=== PATIENT | male | born 1990 | race Caucasian/White ===

== ENCOUNTER 2016-08-14 10:07 | Emergency (ER) | payer OTHER ==
[~2016-08-14] VITALS: Ht 177.8 cm; Wt 72.6 kg
[~2016-08-14 10:07] MED LIST: ACHD5005 PO; AGM875T PO; ASP81TEC; HYDR-2997 PO; HYDR1TAB PO; IBUP-1773 PO; OXYC-12 PO; PRD10T PO; PRD20T PO; SULF1TAB35 PO; SULF1TAB38 PO
--- OUTSIDE RECORDS SUMMARY | 2016-08-14 10:13 | XMS REPORT | Continuity of Care Document ---
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 No 12/15/15 7:04am Organ Donor No 12/15/15 7:04am Resuscitation Status Full Code 12/15/15 7:04am Chief Complaint and Reason for Visit Chief Complaint Allergic Reaction Reason for Visit Insect bites Pruritic rash Problems Active Problems Medical Problem Onset Date Status Insect bites Unknown Acute Pruritic rash Unknown Acute Medications Current Home Medications Medication Dose Units Route Directions Days/Qty Instructions Start Date Prednisone 10 Mg 10 Mg Oral As Directed 18 Take 3 tablets daily for 3 days, then 2 tablets daily for 3 days, then 1 tablet daily for 3 days 12/15/15 Past Home Medications Medication Directions Ordered Status Aspirin 81 Mg Tabec, Daily 12/28/09 Discontinued Acetaminophen/Hydrocodone Bitart (Lorcet 5/325MG) 1 Tab Tablet, 1 Tab Oral Every 3 Hours as needed 03/20/10 Discontinued Trimethoprim/Sulfamethoxazole 1 Ea Tablet, 1 Ea Oral Twice A Day 03/07/11 Discontinued Prednisone 20 Mg Tab, 40 Mg Oral Daily 03/07/11 Discontinued Trimethoprim/Sulfamethoxazole 1 Each Tablet, 1 Each Oral Twice A Day Discontinued Acetaminophen/Hydrocodone Bitart 1 Tab Tablet, 1 - 2 Each Oral Q 4 - 6 Hrs Prn 03/09/11 Discontinued Acetaminophen/Hydrocodone Bitart 1 Each Tablet, 1 - 2 Each Oral Q4hr Prn 20/06 Discontinued Oxycodone Hcl/Acetaminophen 1 Each Tablet, 1 - 2 Each Oral Every 4HRS as needed 06/25/12 Discontinued Amoxicillin/Clavulanate Potassium 1 Tab Tablet, 1 Tab Oral Twice A Day Discontinued Trimethoprim/Sulfamethoxazole 1 Ea Tablet, 1 Ea Oral Twice A Day 12/06/12 Discontinued Ibuprofen (Motrin) 600 Mg Tablet, 600 Mg Oral Every 6 Hours 12/31/13 Discontinued Social History Social History Problem Response Recorded Date/Time Alcohol Use Occasionally Uses 12/15/2015 7:04am Recreational Drug Use No 12/15/2015 7:04am Recent Foreign Travel No 12/15/2015 7:04am Recent Infectious Disease Exposure No 12/15/2015 7:04am Hospitalization with Isolation Denies 12/15/2015 7:04am Sexually Transmitted Disease No 12/15/2015 7:04am Smoking Status Current Everyday Smoker 12/15/2015 7:04am Query Response Start Date Stop Date Smoking Status Current Everyday Smoker Hospital Discharge Instructions No hospital discharge instructions. Plan of Care Discharge Date 12/15/15 7:22am Disposition 01 HOME, SELF-CARE Condition at Discharge Stable Instructions/Education Provided Insect Bite or Sting (ED) Acute Rash (ED) Prescriptions See Medication Section Referrals NO,LOCAL PHYSICIAN - Primary Care Physician Additional Instructions/Education You may continue using efvu-hhi-hqcxjww topical anti-itch medications. Try using a long-acting antihistamine such as Claritin, Zyrtec, Jessica, or their generic equivalents during the day. Use Benadryl up to 50 mg at night to help you sleep and to provide stronger itch relief. Use the steroids as prescribed. Steroids may cause jitteriness, anxiousness, or sleep disturbance. Therefore take your steroids early in the day. Take prednisone with food or milk to avoid stomach upset. Return to care if symptoms worsen. All discharge instructions reviewed with patient and/or family. Voiced understanding. Functional Status No functional status results. Allergies, Adverse Reactions, Alerts No known allergies. Immunizations Name Given Type Tetanus Booster (TDap) Less than 5yrs Historical Vital Signs Acute Vital Signs Vital Response Date/Time Temperature (Fahrenheit) 96.7 degrees F (97.6 - 99.5) 12/15/2015 7:04am Temperature (Calculated Celsius) 35.84445 degrees C (36.4 - 37.5) 12/15/2015 7:04am Temperature Source Temporal 12/15/2015 7:04am Pulse Rate (adult) 61 bpm (60 - 90) 12/15/2015 7:04am Respiratory Rate 20 bpm (12 - 24) 12/15/2015 7:04am O2 Sat by Pulse Oximetry 99 % (88 - 100) 12/15/2015 7:04am Blood Pressure 115/78 mm Hg 12/15/2015 7:04am Blood Pressure Mean 90 mm Hg 12/15/2015 7:04am Pain Pain Intensity 0 12/15/2015 7:04am Height (Feet) 5 feet 12/15/2015 7:04am Height (Inches) 10 inches 12/15/2015 7:04am Height (Calculated Centimeters) 177.306251 cm 12/15/2015 7:04am Weight (Pounds) 160 pounds 12/15/2015 7:04am Weight (Calculated Kilograms) 72.816674 kilograms 12/15/2015 7:04am Height 5 ft 10 in Weight 160 lb Body Mass Index 23.0 kg/m^2 Results No known relevant diagnostic tests, laboratory data and/or discharge summary. Procedures No known history of procedures. Encounters Encounter Location Arrival/Admit Date Discharge/Depart Date Attending Provider Departed Emergency Room [facility] 12/15/15 6:59am 12/14 7:22am NICOLE HARRIS MD Recent Diagnosis
[2016-08-14] MEDS ORDERED: NF-OLOP5ML OP (11:25)
--- NOTE | 2016-08-14 11:25 | ED EENT ---
History of Present Illness General Chief Complaint: Eye Problems Stated Complaint: LEFT EYE SWOLLEN Nursing Triage Note: c/o swelling to left eye. Onset yesterday. Denies difficulty with vision or drainage. Mild discomfort with "squinting". Source: patient Exam Limitations: no limitations History of Present Illness Time seen by provider: 11:07 Initial Comments This young man presents to emergency room with painful, itchy, swollen left eye this morning. He has no known environmental allergies. He describes the sensation as more itchy than painful. Vision is unaffected. A couple months ago he was prescribed tobramycin drops for a similar problem and had improvement. He denies any other symptoms such as sneezing, cough, fever, etc. He has no primary care provider. Allergies and Home Medications Allergies Coded Allergies: No Known Drug Allergies (Unverified , 04/08/16) Home Medications Olopatadine 5 Ml Drops #1 1 DROP OP BID PRN PRN ITCHING In affected eye. May substitute Pataday once daily if more cost effective. Prescribed by: NICOLE SKELTON on 08/14/16 1125 Review of Systems Constitutional: no symptoms reported Eyes: See HPI Ears: No Symptoms Reported Nose: no symptoms reported Mouth: no symptoms reported Throat: no symptoms reported Respiratory: no symptoms reported Skin: see HPI Neurological: No Symptoms Reported Past Ocguhql-Dlksdq-Syeqyg Hx Patient Social History Alcohol Use: Occasionally Uses Recreational Drug Use: Yes Smoking Status: Current Everyday Smoker Type Used: Cigarettes Recent Foreign Travel: No Contact w/Someone Who Travel: No Recent Infectious Disease Expo: No Recent Hopitalizations: Yes Immunizations Up To Date Tetanus Booster (TDap): Less than 5yrs Seasonal Allergies Seasonal Allergies: No Surgeries HX Surgeries: Yes (10/20/09 hernia repair, 03/2009 iliac artery repair with stent ) Surgeries: Vascular Surgery (lower extremity traumas with vascular stent placement) Respiratory Hx Respiratory Disorders: No Cardiovascular Hx Cardiac Disorders: Yes Cardiac Disorders: Peripheral Vascular Neurological Hx Neurological Disorders: No Reproductive System Hx Reproductive Disorders: No Sexually Transmitted Disease: No Genitourinary Hx Genitourinary Disorders: No Gastrointestinal Hx Gastrointestinal Disorders: No Musculoskeletal Hx Musculoskeletal Disorders: Yes (plate right hand) Endocrine Hx Endocrine Disorders: No HEENT HX ENT Disorders: No Cancer Hx Cancer: No Psychosocial Hx Psychiatric Problems: No Integumentary HX Skin/Integumentary Disorder: No Blood Transfusions Hx Blood Disorders: No Adverse Reaction to a Blood Tr: No Family Medical History Significant Family History: No Pertinent Family Hx Physical Exam Vital Signs Vital Sign - Last 12Hours 08/14/16 08/14/16 11:09 11:34 Temp 97.4 Pulse 63 Resp 16 B/P 107/75 Pulse Ox 99 O2 Delivery Room Air General Appearance: WD/WN no apparent distress Eyes: left eye other (conjunctival edema and slight swelling around the lids), bilateral eye EOMI, bilateral eye PERRL Ears: bilateral ear TM normal, bilateral ear auricle normal, bilateral ear canal normal Nose: normal inspection Mouth/Throat: normal mouth inspection pharynx normal Cardiovascular: regular rate, rhythm no edema Respiratory: lungs clear normal breath sounds 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 Departure Impression Impression: Primary Impression: Allergic conjunctivitis, acute Qualified Code: H10.12 - Acute atopic conjunctivitis, left eye Disposition: 01 HOME, SELF-CARE Condition: Stable Departure-Patient Inst. Decision time for Depature: 11:15 Referrals: NO,LOCAL PHYSICIAN (PCP/Family) Primary Care Physician Patient Instructions: Conjunctivitis (Pinkeye), How to Use Eye Drops Add. Discharge Instructions: Use an ltss-sen-fgsqjzl antihistamine such as loratadine in conjunction with an antihistamine eyedrop. You have been provided with a prescription for prescription strength eyedrops. If this is cost prohibitive, you may try an rdck-zbh-pujhqag antihistamine eyedrop. Follow-up with a primary care provider in the outpatient setting if symptoms are not improving. Return to the ER if you have significant worsening requiring prompt attention. All discharge instructions reviewed with patient and/or family. Voiced understanding. Scripts Olopatadine (Patanol)5 Ml Drops1 Drop OP BID PRN ITCHING #1 DROPS In affected eye. May substitute Pataday once daily if more cost effective. Prov:NICOLE HARRIS MD 08/14/16 NICOLE HARRIS MD Aug 14, 2016 11:25
[2016-08-14 11:34] VITALS: BP 107/75
== END 2016-08-14 11:34 | disposition home or self-care (01) ==
LOC: EDUNIT# 10:07 → ER 10:09
DX: H10.12 Acute atopic conjunctivitis, left eye (principal); F17.210 Nicotine dependence, cigarettes, uncomplicated
CPT/HCPCS: 99282

== ENCOUNTER 2017-06-03 18:29 | Emergency (ER) | payer SELFPAY ==
[~2017-06-03] VITALS: Ht 180.3 cm; Wt 79.4 kg
[~2017-06-03 18:29] MED LIST changes: +NF-OLOP5ML OP
[2017-06-03] MEDS ORDERED: LIDOCAINE 2% 20 ML (XYLOCAINE) VIAL INJ ONE (18:45)
--- NOTE | 2017-06-03 18:59 | ED Head Injury ---
General Chief Complaint: Laceration Stated Complaint: TOP OF HEAD LAC Nursing Triage Note: AMB TO ROOM REPORTS LG GLASS OBJECT FELL ON TOP OF HIS HEAD NO LOC ,BUT REPORTS BEING DIZZY Source: patient, family Exam Limitations: no limitations History of Present Illness Time seen by provider: 18:57 Initial Comments To ER per private vehicle with reports of a laceration to the top of the scalp. Patient states that he was getting something out of a cabinet when a ceramic pot fell on top of his head. No loss of consciousness but he does have dizziness. Also the laceration. Occurred: just prior to arrival Severity: moderate Allergies and Home Medications Allergies Coded Allergies: No Known Drug Allergies (Unverified , 04/08/16) Home Medications No Active Prescriptions or Reported Meds Constitutional: see HPI Eyes: No Symptoms Reported Ears, Nose, Mouth, Throat: no symptoms reported Respiratory: no symptoms reported Cardiovascular: no symptoms reported Genitourinary: no symptoms reported Musculoskeletal: no symptoms reported Skin: no symptoms reported Psychiatric/Neurological: No Symptoms Reported Past Pqhgqgl-Rwndts-Pbcjgv Hx Patient Social History Alcohol Use: Occasionally Uses Recreational Drug Use: Yes Smoking Status: Current Everyday Smoker Type Used: Cigarettes Recent Foreign Travel: No Contact w/Someone Who Travel: No Recent Infectious Disease Expo: No Recent Hopitalizations: Yes Immunizations Up To Date Tetanus Booster (TDap): Less than 5yrs Seasonal Allergies Seasonal Allergies: No Surgeries History of Surgeries: Yes (10/20/09 hernia repair, 03/2009 iliac artery repair with stent) Surgeries: Vascular Surgery Respiratory History of Respiratory Disorde: No Cardiovascular History of Cardiac Disorders: Yes Cardiac Disorders: Peripheral Vascular Neurological History of Neurological Disord: No Reproductive System Hx Reproductive Disorders: No Sexually Transmitted Disease: No Gastrointestinal History of Gastrointestinal Di: No Musculoskeletal History of Musculoskeletal Dis: Yes (plate right hand) Endocrine History of Endocrine Disorders: No Cancer History of Cancer: No Psychosocial History of Psychiatric Problem: No Integumentary History of Skin or Integumenta: No Blood Transfusions History of Blood Disorders: No Adverse Reaction to a Blood Tr: No Family Medical History Significant Family History: No Pertinent Family Hx Physical Exam Vital Signs Vital Sign - Last 12Hours 06/03/17 18:31 Temp 97.9 Pulse 111 Resp 18 B/P (MAP) 160/89 Pulse Ox 95 Capillary Refill : Less Than 3 Seconds General Appearance: WD/WN, no apparent distress HEENT: PERRL/EOMI, normal ENT inspection, other (2 cm laceration to the scalp.) Neck: non-tender, full range of motion Respiratory: no respiratory distress, no accessory muscle use Gastrointestinal: normal bowel sounds, non tender Extremities: normal range of motion, non-tender Psychiatric: alert, oriented x 3 Crainal Nerves: normal hearing, normal speech Skin: normal color, warm/dry Emil Coma Score Best Eye Response: (4) Open Spontaneously Best Verbal Response: (5) Oriented Best Motor Response: (6) Obeys Commands Emil Total: 15 Laceration Repair : Wound Location: Scalp Wound Length (cm): 2 Wound's Depth, Shape: linear Wound Explored: clean Anesthesia: 1% Lidocaine Staple Repair: Stapler 35W Progress Anesthetized with 1 mL of 2 percent lidocaine without epinephrine. Scrubbed with chlorhexidine/saline solution and hydrogen peroxide to remove the dried blood. Closed with 3 hortensia. Progress/Results/Core Measures Results/Orders My Orders Orders - MAGALIS GILBERT APRN Lidocaine 2% Injection 20 Ml (Xylocaine (06/03/17 18:45) Ct Head Wo (06/03/17 18:34) Medications Given in ED Current Medications Medications Dose Ordered Sig/Elizabeth Route Start Time Stop Time Status Last Admin Dose Admin Lidocaine HCl 3 ml ONCE ONCE INJ 06/03/17 18:45 06/03/17 18:46 DC 06/03/17 18:47 1 ML Vital Signs/I&O Vital Sign - Last 12Hours 06/03/17 18:31 Temp 97.9 Pulse 111 Resp 18 B/P (MAP) 160/89 Pulse Ox 95 Blood Pressure Mean: 112 Departure Communication (Admissions) Progress Notes NAME: NEMESIO KRISHNAMURTHY [facility] REC#: [id number] PT STATUS: REG ER : 1990 PHYSICIAN: MAGALIS GILBERT APRN ADMIT DATE: 06/03/17/ER Draft Date of Exam:06/03/17 CT HEAD WO PROCEDURE: CT head without contrast. TECHNIQUE: Multiple contiguous axial images were obtained through the brain without the use of intravenous contrast. INDICATION: Head trauma. FINDINGS: The ventricles and sulci are within normal limits. There is no hydrocephalus or cerebral edema. There is no midline shift or mass effect. There is no intracranial mass, hemorrhage, or extra-axial fluid collection. The visualized paranasal sinuses and mastoid air cells are clear. There are no regional areas of decreased attenuation appreciated to suggest an acute CVA. IMPRESSION: No acute intracranial abnormality. Dictated on workstation # [id number] Dict: 06/03/171853 Trans: 06/03/171856 [id number] Interpreted by: UMANG HAGAN MD Electronically signed by: Impression Impression: Primary Impression: Scalp laceration Disposition: 01 HOME, SELF-CARE Condition: Stable Departure-Patient Inst. Decision time for Depature: 18:59 Referrals: NO,LOCAL PHYSICIAN (PCP/Family) Primary Care Physician Patient Instructions: Laceration Repair With Hortensia (DC) Add. Discharge Instructions: 1. Return to the emergency room in 5-7 days to have the hortensia removed 2. Return to ER for any concerns 3. Tylenol and Motrin for headache All discharge instructions reviewed with patient and/or family. Voiced understanding. Scripts No Active Prescriptions or Reported Avelinos MAGALIS GILBERT APRN Jun 03, 2017 18:59
[2017-06-03 19:07] VITALS: BP 141/78
== END 2017-06-03 19:07 | disposition home or self-care (01) ==
LOC: EDUNIT# 18:29 → ER 18:30
DX: S01.01XA Laceration without foreign body of scalp, initial encounter (principal); F17.210 Nicotine dependence, cigarettes, uncomplicated; W20.8XXA Other cause of strike by thrown, projected or falling object, initial encounter
CPT/HCPCS: 70450

== ENCOUNTER 2017-06-10 17:51 | Emergency (ER) | payer SELFPAY ==
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
== END 2017-06-10 18:51 | disposition left against medical advice (07) ==
LOC: EDUNIT# 17:51 → ER 17:52
DX: Z48.02 Encounter for removal of sutures (principal)

== ENCOUNTER 2017-06-11 11:50 | Emergency (ER) | payer SELFPAY ==
[~2017-06-11] VITALS: Ht 177.8 cm; Wt 72.6 kg
--- OUTSIDE RECORDS SUMMARY | 2017-06-11 11:57 | XMS REPORT | Continuity of Care Document ---
Author Author [facility] of [facility] of [facility] Address Unknown Phone Unavailable Allergies Active Description Code Type Severity Reaction Onset Reported/Identified Relationship to Patient Clinical Status Yes No Known Drug Allergies [id number] Drug Allergy Mild N/A 04/08/2016 Medications Problems [...] CAUSE STATUS 07/21/2011 Ot E007.0 ACTIVITIES INVOLVING VINCENTIAN TACKLE BASIL 07/21/2011 Ot E849.4 ACCID IN [...] Ot Y99.8 OTHER EXTERNAL CAUSE STATUS 06/12/2016 ARTUOR MALIK MD Ot F17.210 NICOTINE DEPENDENCE, CIGARETTES, [...] OTH CAUSE OF STRIKE BY THROWN, PROJECTED 06/09/2017 MAGALIS GILBERT APRN Ot F17.210 NICOTINE DEPENDENCE, CIGARETTES, UNCOMPL 06/09/2017 MAGALIS GILBERT APRN Ot S01.01XA LACERATION WITHOUT FOREIGN BODY OF SCALP 06/09/2017 MAGALIS GILBERT APRN Ot W20.8XXA OTH CAUSE OF STRIKE BY THROWN, PROJECTED Procedures Code Description [place] [address] EXCISION BENIGN LESION 0.6-1 cm (spcify location in Medcin description) 04/27/2014 Results Encounters ACCT No. Visit Date/Time Discharge Status Pt. Type Provider Facility Loc./Unit Complaint [id number] 05/04/2014 15:35:00 05/04/2014 23: 59:59 CLS Outpatient STEVE HERR APRN [id number] 04/27/2014 14:12:00 04/27/2014 23: 59:59 CLS Outpatient STEVE HERR APRN [id number] 03/31/2014 16:46:00 03/31/2014 23: 59:59 CLS Outpatient STEVE HERR APRN [id number] 06/10/2017 17:52:00 2016 18:51:00 DIS Emergency NICOLE HARRIS MD [facility] ER STAPLE REMOVAL [id number] 06/03/2017 18:30:00 2016 19:07:00 DIS Outpatient MAGALIS GILBERT APRN [facility] ER TOP OF HEAD LAC [id number] 08/14/2016 10:09:00 2016 11:34:00 DIS Emergency NICOLE HARRIS MD [facility] ER LEFT EYE SWOLLEN [id number] 06/12/2016 10:06:00 2015 10:58:00 DIS Emergency HELENA FAIRCHILD, ARTURO [place] [facility] ER EYES RED/SWOLLEN POSS FB [id number] 04/08/2016 16:46:00 2015 17:55:00 DIS Emergency GENO FAIRCHILD, ROC New Via [facility] ER L HAND LAC [id number] 12/15/2015 06:59:00 2015 07:22:00 DIS Emergency KIMBERLY FAIRCHILD, NICOLE Rucker [facility] ER BITES ALL OVER BODY [id number] 04/01/2014 11:06:00 2013 12:39:00 DIS Emergency ROC LORA MD [facility] ER [id number] 12/31/2013 10:39:00 2013 12:12:00 DIS Emergency [id number] 12/06/2012 03:20:00 2012 04:52:00 DIS Emergency KIMBERLY FAIRCHILD, NICOLE Rucker [facility] ER [id number] 07/21/2011 18:20:00 Document Registration [id number] 03/09/2011 16:36:00 Document Registration [id number] 03/07/2011 19:26:00 Document Registration [id number] 10/20/2009 05:45:00 Document Registration
[2017-06-11 12:22] VITALS: BP 140/75
== END 2017-06-11 12:22 | disposition home or self-care (01) ==
LOC: EDUNIT# 11:50 → ER 11:52
DX: S01.81XD Laceration without foreign body of other part of head, subsequent encounter (principal); X58.XXXD Exposure to other specified factors, subsequent encounter

== ENCOUNTER 2017-06-22 14:33 | Emergency (ER) | payer SELFPAY ==
[~2017-06-22] VITALS: Ht 170.2 cm; Wt 70.3 kg
[2017-06-22] MEDS ORDERED: LORazepam INJ 2 MG/ML (ATIVAN) VIAL ONE (14:51)
[2017-06-22] MEDS ORDERED: NS IV 1000 ML 1,000 ML ONE (14:51)
--- NOTE | 2017-06-22 14:57 | ED Psychosocial ---
General Stated Complaint: METH ABUSE, POSS SEIZURE, CANT MOVE TOES Source: patient, family History of Present Illness Time seen by provider: 14:52 Initial Comments This 27-year-old white male presents with an adverse reaction following smoking meth amphetamines this morning. Patient believes that he may have had a seizure. The patient upon presentation returned to department was febrile and markedly agitated. The patient was able off for simple an appropriate history. He did not appear to be hallucinating. 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 Allergies and Home Medications Allergies Coded Allergies: No Known Drug Allergies (Unverified , 04/08/16) Home Medications No Active Prescriptions or Reported Meds Constitutional: No chills, fever EENTM: No hearing loss, No vision loss Respiratory: No cough Cardiovascular: No chest pain, palpitations Gastrointestinal: No abdominal pain, No diarrhea, No vomiting Genitourinary: No decreased output, No dysuria, No frequency Musculoskeletal: No back pain, No muscle pain Skin: No change in color, No rash Psychiatric/Neurological: No Symptoms Reported Past Ptvgqbt-Qowygw-Lkteax Hx Patient Social History Type Used: Cigarettes Recent Foreign Travel: No Contact w/Someone Who Travel: No Recent Hopitalizations: Yes Immunizations Up To Date Tetanus Booster (TDap): Less than 5yrs Seasonal Allergies Seasonal Allergies: No Surgeries History of Surgeries: Yes (10/20/09 hernia repair, 03/2009 iliac artery repair with stent) Surgeries: Vascular Surgery Respiratory History of Respiratory Disorde: No Cardiovascular History of Cardiac Disorders: Yes Cardiac Disorders: Peripheral Vascular Neurological History of Neurological Disord: No Reproductive System Hx Reproductive Disorders: No Sexually Transmitted Disease: No Gastrointestinal History of Gastrointestinal Di: No Musculoskeletal History of Musculoskeletal Dis: Yes (plate right hand) Endocrine History of Endocrine Disorders: No Cancer History of Cancer: No Psychosocial History of Psychiatric Problem: No Integumentary History of Skin or Integumenta: No Blood Transfusions History of Blood Disorders: No Adverse Reaction to a Blood Tr: No Reviewed Nursing Assessment Reviewed/Agree w Nursing PMH: Yes Family Medical History Significant Family History: No Pertinent Family Hx Physical Exam Vital Signs Vital Sign - Last 12Hours 06/22/17 14:38 Temp 101.6 Pulse 132 Resp 18 B/P (MAP) 120/76 (91) Pulse Ox 99 Capillary Refill : General Appearance: WD/WN, moderate distress HEENT: normal ENT inspection Neck: non-tender, full range of motion, supple Respiratory: lungs clear Cardiovascular: tachycardia Gastrointestinal: normal bowel sounds, non tender, soft Extremities: normal range of motion, non-tender, normal inspection Neurologic/Psychiatric: no motor/sensory deficits, other (patient's extremely agitated. He does not however appear to be having visual or auditory hallucinations.) Appearance/Memory: disheveled Behavior/Eye Contact: cooperative Thoughts/Hallucinations: normal thought pattern, no apparent hallucination Skin: normal color, warm/dry Progress/Results/Core Measures Results/Orders Lab Results Laboratory Tests Test 06/22/17 14:50 Range/Units White Blood Count 7.9 4.3-11.0 10^3/uL Red Blood Count 5.18 4.35-5.85 10^6/uL Hemoglobin 15.4 13.3-17.7 G/DL Hematocrit 43 40-54 % Mean Corpuscular Volume 82 80-99 FL Mean Corpuscular Hemoglobin 30 25-34 PG Mean Corpuscular Hemoglobin Concent 36 32-36 G/DL Red Cell Distribution Width 11.7 10.0-14.5 % Platelet Count 247 130-400 10^3/uL Mean Platelet Volume 9.9 7.4-10.4 FL Neutrophils (%) (Auto) 88 H 42-75 % Lymphocytes (%) (Auto) 4 L 12-44 % Monocytes (%) (Auto) 8 0-12 % Eosinophils (%) (Auto) 0 0-10 % Basophils (%) (Auto) 0 0-10 % Neutrophils # (Auto) 6.9 1.8-7.8 X 10^3 Lymphocytes # (Auto) 0.3 L 1.0-4.0 X 10^3 Monocytes # (Auto) 0.6 0.0-1.0 X 10^3 Eosinophils # (Auto) 0.0 0.0-0.3 10^3/uL Basophils # (Auto) 0.0 0.0-0.1 10^3/uL Neutrophils % (Manual) 87 % Lymphocytes % (Manual) 4 % Monocytes % (Manual) 5 % Band Neutrophils 4 % Toxic Granulation 3+ Dohle Bodies SLIGHT Blood Morphology Comment NORMAL Sodium Level 135 135-145 MMOL/L Potassium Level 3.6 3.6-5.0 MMOL/L Chloride Level 103 98-107 MMOL/L Carbon Dioxide Level 18 L 21-32 MMOL/L Anion Gap 14 5-14 MMOL/L Blood Urea Nitrogen 13 7-18 MG/DL Creatinine 1.19 0.60-1.30 MG/DL Estimat Glomerular Filtration Rate > 60 BUN/Creatinine Ratio 11 Glucose Level 105 70-105 MG/DL Calcium Level 9.7 8.5-10.1 MG/DL Total Bilirubin 0.9 0.1-1.0 MG/DL Aspartate Amino Transf (AST/SGOT) 13 5-34 U/L Alanine Aminotransferase (ALT/SGPT) 17 0-55 U/L Alkaline Phosphatase 80 40-136 U/L Total Protein 7.4 6.4-8.2 GM/DL Albumin 4.5 3.2-4.5 GM/DL My Orders Orders - KATALINA CANAS MD Cbc With Automated Diff (06/22/17 14:49) Comprehensive Metabolic Panel (06/22/17 14:49) Ua Culture If Indicated (06/22/17 14:49) Drug Screen Stat (Urine) (06/22/17 14:49) Ns Iv 1000 Ml (Sodium Chloride 0.9%) (06/22/17 15:00) Lorazepam Injection (Ativan Injection) (06/22/17 15:00) Acetaminophen Tablet (Tylenol Tablet) (06/22/17 15:00) Ns Iv 1000 Ml (Sodium Chloride 0.9%) (06/22/17 14:51) Lorazepam Injection (Ativan Injection) (06/22/17 14:51) Manual Differential (06/22/17 14:50) Medications Given in ED Current Medications Medications Dose Ordered Sig/Elizabeth Route Start Time Stop Time Status Last Admin Dose Admin Acetaminophen 1,000 mg ONCE ONCE PO 06/22/17 15:00 06/22/17 15:01 DC 06/22/17 15:01 1,000 MG Lorazepam 2 mg ONCE ONCE IVP 06/22/17 15:00 06/22/17 15:01 DC 06/22/17 15:00 2 MG Vital Signs/I&O Vital Sign - Last 12Hours 06/22/17 14:38 Temp 101.6 Pulse 132 Resp 18 B/P (MAP) 120/76 (91) Pulse Ox 99 Progress Note : Time: 15:32 Progress Note The patient received 2 L of normal saline IV with 2 mg of Ativan IV. Patient was observed in the emergency department. Patient became much more relaxed. He was able offer a helpful history. 445 p.m. Patient was awake and alert. His family is gathered. They're willing to take the patient home and watch him tonight. Patient understands that his continued drug use is most likely to cause him to . Departure Impression Impression: Primary Impression: Drug abuse Disposition: 01 HOME, SELF-CARE Condition: Improved Departure-Patient Inst. Decision time for Depature: 16:46 Referrals: NO,LOCAL PHYSICIAN (PCP) Primary Care Physician Patient Instructions: ALCOHOL AND SUBSTANCE ABUSE Add. Discharge Instructions: Discontinue drug use. Come back for any problems or questions. Scripts No Active Prescriptions or Reported Meds KATALINA CANAS MD Jun 22, 2017 14:57
[2017-06-22] MEDS: NS IV 1000 ML 1,000 ML IV SCH ×2 (15:00→16:33)
[2017-06-22] MEDS ORDERED: LORazepam INJ 2 MG/ML (ATIVAN) VIAL IVP ONE (15:00)
[2017-06-22] MEDS ORDERED: ACETAMINOPHEN 500 MG TAB (TYLENOL) PO ONE (15:00)
[2017-06-22 15:03] LABS: BASOPHILS % (AUTO) 0 % (0-10); EOSINOPHILS % (AUTO) 0 % (0-10); LYMPHOCYTES # (AUTO) 0.3 X 10^3 (1.0-4.0); LYMPHOCYTES % (AUTO) 4 % (12-44); MEAN CORPUSCULAR HEMOGLOBIN 30 PG (25-34); MEAN CORPUSCULAR HGB CONC 36 G/DL (32-36); MEAN CORPUSCULAR VOLUME 82 FL (80-99); MEAN PLATELET VOLUME 9.9 FL (7.4-10.4); MONOCYTES # (AUTO) 0.6 X 10^3 (0.0-1.0); MONOCYTES % (AUTO) 8 % (0-12); NEUTROPHILS # (AUTO) 6.9 X 10^3 (1.8-7.8); NEUTROPHILS % (AUTO) 88 % (42-75); PLATELET COUNT 247 10^3/uL (130-400); RED BLOOD COUNT 5.18 10^6/uL (4.35-5.85); RED CELL DISTRIBUTION WIDTH 11.7 % (10.0-14.5); WHITE BLOOD COUNT 7.9 10^3/uL (4.3-11.0)
[2017-06-22 15:20] LABS: ALANINE AMINOTRANSFERASE 17 U/L (0-55); ALBUMIN 4.5 GM/DL (3.2-4.5); ANION GAP 14 MMOL/L (5-14); ASPARTATE AMINO TRANSFERASE 13 U/L (5-34); BILIRUBIN,TOTAL 0.9 MG/DL (0.1-1.0); BLOOD UREA NITROGEN 13 MG/DL (7-18); BUN/CREATININE RATIO 11; CALCIUM 9.7 MG/DL (8.5-10.1); CARBON DIOXIDE 18 MMOL/L (21-32); CHLORIDE 103 MMOL/L (98-107); CREATININE SERUM 1.19 MG/DL (0.60-1.30); GFR ESTIMATED > 60; GLUCOSE 105 MG/DL (70-105); POTASSIUM 3.6 MMOL/L (3.6-5.0); SODIUM 135 MMOL/L (135-145); TOTAL PROTEIN 7.4 GM/DL (6.4-8.2)
[2017-06-22 15:25] LABS: BAND NEUTROPHILS 4 %; LYMPHOCYTES % (MANUAL) 4 %; NEUTROPHILS % (MANUAL) 87 %
[2017-06-22 16:54] VITALS: BP 101/79
== END 2017-06-22 16:55 | disposition home or self-care (01) ==
LOC: EDUNIT# 14:33 → ER 14:34
DX: F15.10 Other stimulant abuse, uncomplicated (principal)
CPT/HCPCS: 36415; 80053; 85007; 85027

== ENCOUNTER 2017-06-23 12:09 | Emergency (ER) | payer SELFPAY ==
[~2017-06-23] VITALS: Ht 175.3 cm; Wt 68.0 kg
--- OUTSIDE RECORDS SUMMARY | 2017-06-23 12:14 | XMS REPORT | Continuity of Care Document ---
Author Author [facility] of [facility] of [facility] Address Unknown Phone Unavailable Allergies Active Description Code Type Severity Reaction Onset Reported/Identified Relationship to Patient Clinical Status Yes No Known Drug Allergies [id number] Drug Allergy Mild N/A 04/08/2016 Medications There is no data. Problems Date Dx Coded Attending Type Code [...] SPRAIN OF NECK 07/21/2011 Ot 920 CONTUSION FACE/ SCALP/NCK 07/21/2011 Ot 959.09 INJURY OF FACE AND NECK 07/21/2011 Ot E000.8 OTHER EXTERNAL CAUSE STATUS 07/21/2011 Ot E007.0 ACTIVITIES INVOLVING LAO TACKLE BASIL 07/21/2011 Ot E849.4 ACCID IN [...] BITE (NONVENOMOUS) OF LEFT BACK W 12/15/2015 BRUEGGEMANN MD, NICOLE T Ot S40.261A INSECT BITE (NONVENOMOUS) OF RIGHT [...] Ot Y92.[address] IN UNSP NON-INSTITUT (PRIVATE 04/08/2016 ROC LORA MD Ot Y99.8 OTHER [...] NICOTINE DEPENDENCE, CIGARETTES, UNCOMPL 06/03/2017 MAGALIS GILBERT BLEACH PACKER Ot S01.01XA LACERATION WITHOUT FOREIGN BODY OF SCALP 06/03/2017 MAGALIS GILBERT APRN Ot W20.8XXA OTH CAUSE OF STRIKE BY THROWN, PROJECTED 06/09/2017 MAGALIS GILBERT APRN Ot F17.210 NICOTINE DEPENDENCE, CIGARETTES, UNCOMPL 06/09/2017 MAGALIS GILBERT APRN Ot S01.01XA LACERATION WITHOUT FOREIGN BODY OF SCALP 06/09/2017 MAGALIS GILBERT APRN Ot W20.8XXA OTH CAUSE OF STRIKE BY THROWN, PROJECTED 06/11/2017 ARTURO MALIK MD Ot S01.81XD LACERATION W/O FOREIGN BODY OF OTH PART 06/11/2017 ARTURO MALIK MD Ot X58.XXXD EXPOSURE TO OTHER SPECIFIED FACTORS, SUB Procedures Code Description [place] [address] EXCISION BENIGN LESION 0.6- 1 cm (spcify location in Medcin description) 04/27/2014 Results There is no data. Encounters ACCT No. Visit Date/Time Discharge Status Pt. Type Provider Facility Loc./Unit Complaint [id number] 05/04/2014 15:35:00 05/04/2014 23:59:59 CLS Outpatient STEVE HERR APRN [id number] 04/27/2014 14:12:00 04/27/2014 23:59:59 CLS Outpatient STEVE HERR APRN [id number] 03/31/2014 16:46:00 03/31/2014 23:59:59 CLS Outpatient STEVE HERR APRN [id number] 06/11/2017 11:52:00 06/11/2017 12:22:00 DIS Emergency ARTURO MALIK MD [facility] ER SUTURE REMOVAL [id number] 06/10/2017 17:52:00 06/10/2017 18:51:00 DIS Emergency NICOLE HARRIS MD [facility] ER STAPLE REMOVAL [id number] 06/03/2017 18:30:00 06/03/2017 19:07:00 DIS Emergency MAGALIS GILBERT APRN [facility] ER TOP OF HEAD LAC [id number] 08/14/2016 10:09:00 08/14/2016 11:34:00 DIS Emergency NICOLE HARRIS MD [facility] ER LEFT EYE SWOLLEN [id number] 06/12/2016 10:06:00 06/12/2016 10:58:00 DIS Emergency ARTURO MALIK MD [facility] ER EYES RED/SWOLLEN POSS FB [id number] 04/08/2016 16:46:00 04/08/2016 17:55:00 DIS Emergency ROC LORA MD Via [facility] ER L HAND LAC [id number] 12/15/2015 06:59:00 12/15/2015 07:22:00 DIS Emergency NICOLE HARRIS MD Via [facility] ER BITES ALL OVER BODY [id number] 04/01/2014 11:06:00 04/01/2014 12:39:00 DIS Emergency ROC LORA MD [facility] ER [id number] 12/31/2013 10:39:00 12/31/2013 12:12:00 DIS Emergency [id number] 12/06/2012 03:20:00 12/06/2012 04:52:00 DIS Emergency NICOLE HARRIS MD Via [facility] ER [id number] 07/21/2011 18:20:00 Document Registration [id number] 03/09/2011 16:36:00 Document Registration [id number] 03/07/2011 19:26:00 Document Registration [id number] 10/20/2009 05:45:00 Document Registration
--- NOTE | 2017-06-23 12:38 | ED Cough/URI ---
General Stated Complaint: KIDNEY PAIN/HEADACHE Source: patient, family Exam Limitations: no limitations History of Present Illness Time seen by provider: 12:35 Initial Comments This 27-year-old white male returns emergency department after evaluation yesterday following recreational drug use with math. The patient is complaining of fever, chills, cough, kidney pain, and headache. Several family members have had similar symptoms from a shared viral source at home. The patient denies photophobia, progressive nuchal rigidity, productive cough, associated nausea or vomiting, frequency or dysuria. Allergies and Home Medications Allergies Coded Allergies: No Known Drug Allergies (Unverified , 04/08/16) Home Medications No Active Prescriptions or Reported Meds Constitutional: chills, fever, malaise, weakness EENTM: No ear discharge, No vision loss, No mouth pain, No throat pain Respiratory: cough Cardiovascular: No chest pain Gastrointestinal: No constipation, No diarrhea, No melena, nausea, vomiting Genitourinary: other ("kidney pains") Musculoskeletal: back pain Skin: No change in color, No rash Psychiatric/Neurological: No Symptoms Reported Hematologic/Lymphatic: No Symptoms Reported Immunological/Allergic: no symptoms reported Past Nazccht-Dcioww-Sagjpw Hx Patient Social History Drug of Choice: PT STATES SMOKES POT DAILY, METH FREQUENTLY Type Used: Cigarettes Recent Foreign Travel: No Contact w/Someone Who Travel: No Recent Hopitalizations: No Immunizations Up To Date Tetanus Booster (TDap): Less than 5yrs Seasonal Allergies Seasonal Allergies: No Surgeries History of Surgeries: Yes (10/20/09 hernia repair, 03/2009 iliac artery repair with stent) Surgeries: Vascular Surgery Respiratory History of Respiratory Disorde: No Cardiovascular History of Cardiac Disorders: Yes Cardiac Disorders: Peripheral Vascular Neurological History of Neurological Disord: No Reproductive System Hx Reproductive Disorders: No Sexually Transmitted Disease: No Gastrointestinal History of Gastrointestinal Di: No Musculoskeletal History of Musculoskeletal Dis: Yes (plate right hand) Endocrine History of Endocrine Disorders: No Cancer History of Cancer: No Psychosocial History of Psychiatric Problem: No Integumentary History of Skin or Integumenta: No Blood Transfusions History of Blood Disorders: No Adverse Reaction to a Blood Tr: No Reviewed Nursing Assessment Reviewed/Agree w Nursing PMH: Yes Family Medical History Significant Family History: No Pertinent Family Hx Physical Exam Vital Signs Vital Sign - Last 12Hours 06/23/17 12:43 Temp 101.0 Pulse 110 Resp 20 B/P (MAP) 138/90 (106) Pulse Ox 99 O2 Delivery Room Air Capillary Refill : General Appearance: WD/WN, mild distress Eyes: Bilateral Eye Normal Inspection HEENT: normal ENT inspection Neck: normal inspection Respiratory: lungs clear, normal breath sounds Cardiovascular: regular rate, rhythm, no edema Gastrointestinal: normal bowel sounds, non tender, soft Extremities: normal range of motion, non-tender, normal inspection, no pedal edema Neurologic/Psychiatric: no motor/sensory deficits, alert, normal mood/affect Skin: normal color, warm/dry Progress/Results/Core Measures Suspected Sepsis SIRS Temperature: Pulse: Respiratory Rate: Laboratory Tests 06/23/17 12:38: White Blood Count 3.7L Blood Pressure / Mean: Laboratory Tests 06/23/17 12:38: Creatinine 1.06, Platelet Count 158, Total Bilirubin 0.4 Results/Orders Lab Results Laboratory Tests Test 06/23/17 12:38 06/23/17 13:51 Range/Units White Blood Count 3.7 L 4.3-11.0 10^3/uL Red Blood Count 4.91 4.35-5.85 10^6/uL Hemoglobin 14.7 13.3-17.7 G/DL Hematocrit 41 40-54 % Mean Corpuscular Volume 84 80-99 FL Mean Corpuscular Hemoglobin 30 25-34 PG Mean Corpuscular Hemoglobin Concent 36 32-36 G/DL Red Cell Distribution Width 11.6 10.0-14.5 % Platelet Count 158 130-400 10^3/uL Mean Platelet Volume 10.2 7.4-10.4 FL Neutrophils (%) (Auto) 82 H 42-75 % Lymphocytes (%) (Auto) 9 L 12-44 % Monocytes (%) (Auto) 8 0-12 % Eosinophils (%) (Auto) 0 0-10 % Basophils (%) (Auto) 0 0-10 % Neutrophils # (Auto) 3.0 1.8-7.8 X 10^3 Lymphocytes # (Auto) 0.3 L 1.0-4.0 X 10^3 Monocytes # (Auto) 0.3 0.0-1.0 X 10^3 Eosinophils # (Auto) 0.0 0.0-0.3 10^3/uL Basophils # (Auto) 0.0 0.0-0.1 10^3/uL Sodium Level 135 135-145 MMOL/L Potassium Level 3.6 3.6-5.0 MMOL/L Chloride Level 104 98-107 MMOL/L Carbon Dioxide Level 21 21-32 MMOL/L Anion Gap 10 5-14 MMOL/L Blood Urea Nitrogen 9 7-18 MG/DL Creatinine 1.06 0.60-1.30 MG/DL Estimat Glomerular Filtration Rate > 60 BUN/Creatinine Ratio 8 Glucose Level 100 70-105 MG/DL Calcium Level 9.1 8.5-10.1 MG/DL Total Bilirubin 0.4 0.1-1.0 MG/DL Aspartate Amino Transf (AST/SGOT) 16 5-34 U/L Alanine Aminotransferase (ALT/SGPT) 16 0-55 U/L Alkaline Phosphatase 73 40-136 U/L Total Protein 6.7 6.4-8.2 GM/DL Albumin 4.1 3.2-4.5 GM/DL Urine Color YELLOW Urine Clarity CLEAR Urine pH 6 5-9 Urine Specific [place] 1.020 1.016-1.022 Urine Protein 2+ H NEGATIVE Urine Glucose (UA) NEGATIVE NEGATIVE Urine Ketones 1+ H NEGATIVE Urine Nitrite NEGATIVE NEGATIVE Urine Bilirubin NEGATIVE NEGATIVE Urine Urobilinogen 4 H NORMAL MG/DL Urine Leukocyte Esterase NEGATIVE NEGATIVE Urine RBC (Auto) 1+ H NEGATIVE Urine RBC NONE /HPF Urine WBC NONE /HPF Urine Crystals NONE /LPF Urine Bacteria FEW H /HPF Urine Casts NONE /LPF Urine Mucus /LPF Urine Culture Indicated NO Urine Opiates Screen NEGATIVE NEGATIVE Urine Oxycodone Screen NEGATIVE NEGATIVE Urine Methadone Screen NEGATIVE NEGATIVE Urine Propoxyphene Screen NEGATIVE NEGATIVE Urine Barbiturates Screen NEGATIVE NEGATIVE Ur Tricyclic Antidepressants Screen NEGATIVE NEGATIVE Urine Phencyclidine Screen NEGATIVE NEGATIVE Urine Amphetamines Screen POSITIVE H NEGATIVE Urine Methamphetamines Screen POSITIVE H NEGATIVE Urine Benzodiazepines Screen POSITIVE H NEGATIVE Urine Cocaine Screen NEGATIVE NEGATIVE Urine Cannabinoids Screen POSITIVE H NEGATIVE My Orders Orders - KATALINA CANAS MD Cbc With Automated Diff (06/23/17 12:32) Comprehensive Metabolic Panel (06/23/17 12:32) Ua Culture If Indicated (06/23/17 12:32) Drug Screen Stat (Urine) (06/23/17 12:32) Ns Iv 1000 Ml (Sodium Chloride 0.9%) (06/23/17 12:45) Acetaminophen Tablet (Tylenol Tablet) (06/23/17 12:45) Chest 1 View, Ap/Pa Only (06/23/17 12:59) Influenza A And B Antigens (06/23/17 14:18) Medications Given in ED Current Medications Medications Dose Ordered Sig/Elizabeth Route Start Time Stop Time Status Last Admin Dose Admin Acetaminophen 1,000 mg ONCE ONCE PO 06/23/17 12:45 06/23/17 12:46 DC 06/23/17 12:56 1,000 MG Vital Signs/I&O Vital Sign - Last 12Hours 06/23/17 06/23/17 12:43 12:56 Temp 101.0 101.0 Pulse 110 Resp 20 B/P (MAP) 138/90 (106) Pulse Ox 99 O2 Delivery Room Air Capillary Refill : Progress Note : Time: 14:25 Progress Note Patient's chest x-ray was unremarkable. The patient's CBC was similarly benign. The patient's urine drug screen was positive for benzodiazepines, amphetamines, methamphetamines, and marijuana. UA was unremarkable. Flu screen was done. Departure Impression Impression: Primary Impression: Viral syndrome Disposition: HOME, SELF-CARE Condition: Unchanged Departure-Patient Inst. Decision time for Depature: 14:27 Referrals: NO,LOCAL PHYSICIAN (PCP) Primary Care Physician Patient Instructions: Flu, Adult (DC) Add. Discharge Instructions: Rest at home. Ibuprofen and Tylenol for pain and fever. Follow-up with your doctor of choice on Saturday. Return for any problems. Scripts No Active Prescriptions or Reported Meds KATALINA ACNAS MD Jun 23, 2017 12:38
[2017-06-23] MEDS ORDERED: NS IV 1000 ML 1,000 ML IV SCH (12:45)
[2017-06-23] MEDS ORDERED: ACETAMINOPHEN 500 MG TAB (TYLENOL) PO ONE (12:45)
[2017-06-23 12:47] LABS: BASOPHILS % (AUTO) 0 % (0-10); EOSINOPHILS % (AUTO) 0 % (0-10); LYMPHOCYTES # (AUTO) 0.3 X 10^3 (1.0-4.0); LYMPHOCYTES % (AUTO) 9 % (12-44); MEAN CORPUSCULAR HEMOGLOBIN 30 PG (25-34); MEAN CORPUSCULAR HGB CONC 36 G/DL (32-36); MEAN CORPUSCULAR VOLUME 84 FL (80-99); MEAN PLATELET VOLUME 10.2 FL (7.4-10.4); MONOCYTES # (AUTO) 0.3 X 10^3 (0.0-1.0); MONOCYTES % (AUTO) 8 % (0-12); NEUTROPHILS % (AUTO) 82 % (42-75); PLATELET COUNT 158 10^3/uL (130-400); RED BLOOD COUNT 4.91 10^6/uL (4.35-5.85); RED CELL DISTRIBUTION WIDTH 11.6 % (10.0-14.5); WHITE BLOOD COUNT 3.7 10^3/uL (4.3-11.0)
[2017-06-23 13:02] LABS: ALANINE AMINOTRANSFERASE 16 U/L (0-55); ALBUMIN 4.1 GM/DL (3.2-4.5); ANION GAP 10 MMOL/L (5-14); ASPARTATE AMINO TRANSFERASE 16 U/L (5-34); BILIRUBIN,TOTAL 0.4 MG/DL (0.1-1.0); BLOOD UREA NITROGEN 9 MG/DL (7-18); BUN/CREATININE RATIO 8; CALCIUM 9.1 MG/DL (8.5-10.1); CARBON DIOXIDE 21 MMOL/L (21-32); CHLORIDE 104 MMOL/L (98-107); CREATININE SERUM 1.06 MG/DL (0.60-1.30); GFR ESTIMATED > 60; GLUCOSE 100 MG/DL (70-105); POTASSIUM 3.6 MMOL/L (3.6-5.0); SODIUM 135 MMOL/L (135-145); TOTAL PROTEIN 6.7 GM/DL (6.4-8.2)
--- NOTE | 2017-06-23 13:25 | Diagnostic Imaging Report ---
INDICATION: Fever, malaise, body aches, cough and congestion x2 days.. TECHNIQUE: Single view chest 1:09 PM. CORRELATION STUDY: 06/21/2012 FINDINGS: The heart size, mediastinal configuration and pulmonary vascularity are within normal limits. The lungs are clear with no consolidating infiltrate. There is no significant effusion or pneumothorax. IMPRESSION: 1. Negative portable chest. Dictated by: Dictated on workstation # [id number]
[2017-06-23 13:58] LABS: BILIRUBIN,URINE NEGATIVE (NEGATIVE); KETONES,URINE 1+ (NEGATIVE); LEUKOCYTE ESTERASE ,URINE NEGATIVE (NEGATIVE); NITRITE,URINE NEGATIVE (NEGATIVE); PH,URINE 6 (5-9); PROTEIN,URINE 2+ (NEGATIVE); UROBILINOGEN,URINE 4 MG/DL (NORMAL)
[2017-06-23 14:55] VITALS: BP 138/82
== END 2017-06-23 14:55 | disposition home or self-care (01) ==
LOC: EDUNIT# 12:09 → ER 12:09
DX: J10.1 Influenza due to other identified influenza virus with other respiratory manifestations (principal); F12.90 Cannabis use, unspecified, uncomplicated; F15.90 Other stimulant use, unspecified, uncomplicated; Z95.828 Presence of other vascular implants and grafts
CPT/HCPCS: 36415; 71010; 80053; 80306; 81000; 85025; 87804

== ENCOUNTER 2018-11-23 17:11 | Emergency (ER) | payer SELFPAY ==
[~2018-11-23] VITALS: Ht 177.8 cm; Wt 72.6 kg
--- OUTSIDE RECORDS SUMMARY | 2018-11-23 17:16 | XMS REPORT ---
Author Author Migration, Doctor Organization [facility] Address Unknown Phone Unavailable Care Team Providers Care Electric Sealing Machine Operator Name Role Phone Migration, Doctor Unavailable Unavailable PROBLEMS Type Condition ICD9-CM Code [id number] Code Onset Dates Condition Status SNOMED Code Problem Encounter for removal of sutures V58.32 Active 97215450 Problem Sebaceous cyst 706.2 Active [id number] ALLERGIES No Information ENCOUNTERS Encounter Location Date Diagnosis [facility] [id number] [place] [phone] Oct, [facility] [id number] [place] [phone] Oct, [facility] [id number] [place] [phone] Apr, [facility] [id number] [place] [phone] Apr, [facility] [id number] [place] [phone] Apr, [facility] [id number] [place] [phone] Apr, [facility] [id number] [place] [phone] Mar, [facility] [id number] [place] [phone] Mar, [facility] [id number] [place] [phone] Dec, [facility] [id number] [place] [phone] November, [facility] [id number] [place] [phone] Sep, [facility] [id number] [address] 20 Aug, 2009 [facility] [id number] [address] Aug, [facility] [id number] [address] Aug, [facility] [id number] [address] Jun, [facility] [id number] [address] May, [facility] [id number] [address] May, [facility] [id number] [address] 15 Mar, 2009 IMMUNIZATIONS No Known Immunizations SOCIAL HISTORY Never Assessed REASON FOR VISIT [facility] [place] CARE VITAL SIGNS MEDICATIONS Unknown Medications RESULTS No Results PROCEDURES No Known procedures INSTRUCTIONS MEDICATIONS ADMINISTERED No Known Medications
--- OUTSIDE RECORDS SUMMARY | 2018-11-23 17:16 | XMS REPORT ---
Author Author Migration, Doctor Organization [facility] Address Unknown Phone Unavailable Care Team Providers Care Casing Trimmer Name Role Phone Migration, Doctor Unavailable Unavailable PROBLEMS Type Condition ICD9-CM Code [id number] Code Onset Dates Condition Status SNOMED Code Problem Encounter for removal of sutures V58.32 Active 73354639 Problem Sebaceous cyst 706.2 Active [id number] ALLERGIES No Information ENCOUNTERS Encounter Location Date Diagnosis [facility] [id number] [place] [phone] Oct, [facility] [id number] [place] [address] Oct, [facility] [id number] [place] [address] Apr, [facility] [id number] [place] [phone] Apr, [facility] [id number] [place] [phone] Apr, [facility] [id number] [place] [address] Apr, [facility] [id number] [place] [phone] Mar, [facility] [id number] [place] [address] Mar, [facility] [id number] [place] [phone] Dec, [facility] [id number] [place] [address] November, [facility] [id number] [place] [phone] Sep, [facility] [id number] [address] Aug, [facility] [id number] [place] [address] Aug, [facility] [id number] [address] Aug, [facility] [id number] [place] [address] Jun, [facility] [id number] [place] [address] May, [facility] [id number] [address] May, [facility] [id number] [place] [address] Mar, IMMUNIZATIONS No Known Immunizations SOCIAL HISTORY Never Assessed REASON FOR VISIT [facility] [place] PLAN OF CARE VITAL SIGNS MEDICATIONS Medication Instructions Dosage Frequency Start Date End Date Duration Status Bactrim DS 800-160 mg take 1 tablet by oral route every 12 hours for 10 days Mar, Active RESULTS No Results PROCEDURES No Known procedures INSTRUCTIONS MEDICATIONS ADMINISTERED No Known Medications
--- OUTSIDE RECORDS SUMMARY | 2018-11-23 17:17 | XMS REPORT | Continuity of Care Document ---
Author Author [facility] Organization [facility] Address Unknown Phone Unavailable Care Team Providers Care Strapping Machine Tender Name Role Phone [facility] Insurance Providers Payer Name Policy Number Subscriber Name Relationship Self Pay Enrique Barba 01 Self / Same As Patient Advance Directives Directive Response Recorded Date Advance Directives N 12/06/12 3:24am Health Care Power of Electronic Equipment Set Up Operator N 12/06/12 3:24am Organ Donor N 12/06/12 3:24am Problems No Known Problems or Medical conditions. Family History History Response Recorded Date/Time Hx Family Cancer N 06/21/12 8:01am Social History History Response Recorded Date/Time Alcohol Use Occasionally Uses 12/06/12 3:24am Recreational Drug Use Y 12/06/12 3:24am Allergies, Adverse Reactions, Alerts Allergen Type Severity Reaction Last Updated No Known Drug Allergies 10/19/09 Medications Medication Dose Units Route Sig Qty Days Trimethoprim/Sulfamethoxazole (Bactrim Ds) 1 Ea PO BID 5 Amoxicillin/Clavulanate Potassium (Augmentin 875-125 Tablet) 1 Tab PO BID 5 Oxycodone Hcl/Acetaminophen (Percocet 5-325 Mg Tablet) 1 - 2 Each PO Q4H PRN 35 Aspirin (Aspirin Ec 81 Mg) DAILY Acetaminophen/Hydrocodone Bitart (Vicodin 5-500 Tablet) 1 - 2 Each PO Q4HR PRN 8 Response Recorded Date/Time Status not known Unknown Results Test Date Result Interp. Ref. Range Activated Partial Thromboplast Time June 21, 2012 12:24am 55 SEC H 24-35 Alanine Aminotransferase (ALT/SGPT) June 23, 2012 5:26am 189 U/L H 30-65 Albumin June 23, 2012 5:26am 3.4 G/DL N 3.4-5.0 Alkaline Phosphatase June 23, 2012 5:26am 88 U/L N 50-136 Vicente Test June 21, 2012 5:35am POSITIVE - Arterial Blood Base Excess June 21, 2012 5:35am -1.8 MMOL/L N -2.5-2.5 Arterial Blood HCO3 June 21, 2012 5:35am 24 MMOL/L N 23-27 Arterial Blood Oxygen Saturation June 21, 2012 5:35am 100 % N 94-100 Arterial Blood Partial Pressure CO2 June 21, 2012 5:35am 43 MMHG N 35-45 Arterial Blood Partial Pressure O2 June 21, 2012 5:35am 204 MMHG H 79-93 Arterial Blood Total CO2 June 21, 2012 5:35am 24.8 MMOL/L N 21.0-31.0 Arterial Blood pH June 21, 2012 5:35am 7.36 L 7.37-7.43 Aspartate Amino Transf (AST/SGOT) June 23, 2012 5:26am 274 U/L H 15-37 BUN/Creatinine Ratio June 23, 2012 5:26am 5 - Basophils # (Auto) October 19, 2009 3:05pm 0.0 10^3/uL N 0.0-0.1 Basophils (%) (Auto) October 19, 2009 3:05pm 1 % N 0-10 Blood Gas Inspired Oxygen June 21, 2012 5:35am 50% - Blood Gas Patient Temperature June 21, 2012 5:35am 98.9 - Blood Gas Puncture Site June 21, 2012 5:35am L RADIAL - Blood Gas Ventilator Setting June 21, 2012 5:35am YES - Blood Urea Nitrogen June 23, 2012 5:26am 6 MG/DL L 7-18 Calcium Level June 23, 2012 5:26am 8.2 MG/DL L 8.5-10.1 Carbon Dioxide Level June 23, 2012 5:26am 33 MMOL/L H 21-32 Chloride Level June 23, 2012 5:26am 97 MMOL/L L 101-110 Creatinine June 23, 2012 5:26am 1.1 MG/DL N 0.6-1.3 D-Dimer June 21, 2012 12:24am 3.77 UG/ML H 0.00-0.49 Direct Bilirubin June 21, 2012 12:24am 0.0 MG/DL N 0.0-0.30 Eosinophils # (Auto) October 19, 2009 3:05pm 0.1 10^3/uL N 0.0-0.3 Eosinophils (%) (Auto) October 19, 2009 3:05pm 2 % N 0-10 Fibrinogen June 21, 2012 12:24am 116 MG/DL L 221-496 Glucose Level June 23, 2012 5:26am 110 MG/DL H 74-106 Hematocrit June 25, 2012 2:32pm 30 % L 40-54 Hemoglobin June 25, 2012 2:32pm 10.3 G/DL L 13.3-17.7 Indirect Bilirubin June 21, 2012 12:24am 0.1 MG/DL - Lactic Acid Level June 21, 2012 3:45am 4.1 MMOL/L PH 0.4-2.0 Lymphocytes # (Auto) October 19, 2009 3:05pm 1.7 X 10^3 N 1.0-4.0 Lymphocytes (%) (Auto) October 19, 2009 3:05pm 32 % N 12-44 Magnesium Level June 23, 2012 5:26am 2.1 MG/DL N 1.8-2.4 Mean Corpuscular Hemoglobin June 25, 2012 2:32pm 30 PG N 25-34 Mean Corpuscular Hemoglobin Concent June 25, 2012 2:32pm 34 G/DL N 32-36 Mean Corpuscular Volume June 25, 2012 2:32pm 87 FL N 80-99 Mean Platelet Volume June 25, 2012 2:32pm 10.0 FL N 7.4-10.4 Monocytes # (Auto) October 19, 2009 3:05pm 0.5 X 10^3 N 0.0-1.0 Monocytes (%) (Auto) October 19, 2009 3:05pm 10 % N 0-12 Neutrophils # (Auto) October 19, 2009 3:05pm 2.9 X 10^3 N 1.8-7.8 Neutrophils (%) (Auto) October 19, 2009 3:05pm 56 % N 42-75 Phosphorus Level June 21, 2012 12:24am 7.5 MG/DL H 2.5-4.9 Platelet Count June 25, 2012 2:32pm 155 10^3/uL N 130-400 Potassium Level June 23, 2012 5:26am 3.5 MMOL/L L 3.6-5.0 Prothromb Time International Ratio June 25, 2012 6:00am 1.0 N 0.8-1.4 Prothrombin Time June 25, 2012 6:00am 13.1 SEC N 12.2-14.7 Red Blood Count June 25, 2012 2:32pm 3.46 10^6/uL L 4.35-5.85 Red Cell Distribution Width June 25, 2012 2:32pm 14.0 % N 10.0-14.5 Sodium Level June 23, 2012 5:26am 135 MMOL/L N 135-145 Total Bilirubin June 23, 2012 5:26am 0.8 MG/DL N 0.0-1.0 Total Protein June 23, 2012 5:26am 6.9 G/DL N 6.4-8.2 Troponin I June 21, 2012 12:24am < 0.10 NG/ML 0.00-0.10 Ur Tricyclic Antidepressants Screen June 21, 2012 12:55am NEGATIVE - Urine Amorphous Sediment June 21, 2012 12:55am MOD MARIA M PHOSPHATE /LPF H - Urine Amphetamines Screen June 21, 2012 12:55am NEGATIVE - Urine Bacteria June 21, 2012 12:55am TRACE /HPF - Urine Barbiturates Screen June 21, 2012 12:55am NEGATIVE - Urine Benzodiazepines Screen June 21, 2012 12:55am NEGATIVE - Urine Bilirubin June 21, 2012 12:55am NEGATIVE - Urine Casts June 21, 2012 12:55am NONE /LPF - Urine Clarity June 21, 2012 12:55am CLEAR - Urine Cocaine Screen June 21, 2012 12:55am NEGATIVE - Urine Color June 21, 2012 12:55am YELLOW - Urine Crystals June 21, 2012 12:55am PRESENT /LPF H - Urine Culture Indicated June 21, 2012 12:55am YES - Urine Glucose (UA) June 21, 2012 12:55am NEGATIVE - Urine Ketones June 21, 2012 12:55am NEGATIVE - Urine Leukocyte Esterase June 21, 2012 12:55am 1+ H - Urine Methamphetamines Screen June 21, 2012 12:55am NEGATIVE - Urine Mucus June 21, 2012 12:55am NEGATIVE /LPF - Urine Nitrite June 21, 2012 12:55am NEGATIVE - Urine Opiates Screen June 21, 2012 12:55am NEGATIVE - Urine Phencyclidine Screen June 21, 2012 12:55am NEGATIVE - Urine Propoxyphene Screen June 21, 2012 12:55am NEGATIVE - Urine Protein June 21, 2012 12:55am NEGATIVE - Urine RBC June 21, 2012 12:55am 2-5 /HPF H - Urine Specific [place] June 21, 2012 12:55am 1.010 L - Urine Squamous Epithelial Cells June 21, 2012 12:55am 0-2 /HPF - Urine Urobilinogen June 21, 2012 12:55am NORMAL MG/DL - Urine WBC June 21, 2012 12:55am 5-10 /HPF H - Urine pH June 21, 2012 12:55am 7 - White Blood Count June 25, 2012 2:32pm 4.8 10^3/uL N 4.3-11.0 Serum Alcohol June 21, 2012 12:24am 268 MG/DL H -5 Lab Scanned Report July 09, 2012 10:01am Transfusion Reaction Form [id number] - Estimat Glomerular Filtration Rate June 21, 2012 12:24am > 60 - Urine Oxycodone Screen June 21, 2012 12:55am NEGATIVE - Urine Methadone Screen June 21, 2012 12:55am NEGATIVE - Creatine Kinase June 21, 2012 12:24am 361 U/L H 1-205 Urine Cannabinoids Screen June 21, 2012 12:55am POSITIVE H - Urine Buprenorphine June 21, 2012 12:55am NEGATIVE - Cardiac Panel Pathologist Review June 21, 2012 12:24am SEE CARDIAC PATH REV - Urine RBC (Auto) June 21, 2012 12:55am TRACE H - Procedures Procedure Code Date RPR VENTRAL JARAD INIT BLOCK 81122 10/20/09 HERNIA REPAIR W/MESH 22660 10/20/09 TREAT METACARPAL FRACTURE 99557 03/20/10 SUTURE OF ARTERY 39.31 06/21/12 SUTURE OF VEIN 39.32 06/21/12 CONTINUOUS INVASIVE MECHANICAL VENTILATION <96 CONSEC HRS 96.71 06/21/12 INSERT ENDOTRACHEAL TUBE 96.04 06/21/12 MRSA Screen 06/21/12 Urine Culture 06/21/12 Encounters Encounter Location Date/Time Registered Emergency Room [facility] 12/06/12 3:20am Discharged Inpatient [facility] 06/21/12 1:01am Pre-registered Emergency Room [facility] 04/11/12 1:54pm Departed Emergency Room [facility] 07/21/11 6:20pm
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
--- NOTE | 2018-11-23 17:28 | ED EENT ---
History of Present Illness General Stated Complaint: R EAR PAIN/L SIDE DENTAL PAIN Source: patient Exam Limitations: no limitations History of Present Illness Date Seen by Provider: November 23, 2018 Time Seen by Provider: 17:22 Initial Comments To ER with a few day history of right sided earache. He's also had some reduced hearing in the right ear. He tried an ear candle [id number] without success. Timing/Duration: abrupt Severity: moderate Location: ear (R) Prearrival Treatment: other Associated Symptoms: denies symptoms Allergies and Home Medications Allergies Coded Allergies: No Known Drug Allergies (Unverified , 04/08/16) Home Medications No Active Prescriptions or Reported Meds Patient Home Medication List Home Medication List Reviewed: Yes Review of Systems Review of Systems Constitutional: see HPI Eyes: No Symptoms Reported Ears: See HPI, Pain Nose: no symptoms reported Mouth: no symptoms reported Throat: no symptoms reported Respiratory: no symptoms reported Cardiovascular: no symptoms reported Musculoskeletal: no symptoms reported Skin: no symptoms reported Past Fofbohh-Hbyigt-Ilgvjw Hx Patient Social History Drug of Choice: PT STATES SMOKES POT DAILY, METH FREQUENTLY Type Used: Cigarettes Recent Foreign Travel: No Contact w/Someone Who Travel: No Recent Hopitalizations: No Immunizations Up To Date Tetanus Booster (TDap): Less than 5yrs Seasonal Allergies Seasonal Allergies: No Past Medical History Surgeries: Yes (10/20/09 hernia repair, 03/2009 iliac artery repair with stent) Vascular Surgery Respiratory: No Cardiac: Yes Peripheral Vascular Neurological: No Reproductive Disorders: No Sexually Transmitted Disease: No Gastrointestinal: No Musculoskeletal: Yes (plate right hand) Endocrine: No HEENT: No Cancer: No Psychosocial: No Integumentary: No Blood Disorders: No Adverse Reaction/Blood Tranf: No Family Medical History No Pertinent Family Hx Physical Exam Height, Weight, BMI Height: 5'9.00" Weight: 150lbs. oz. 68.862718vq; 21.09 BMI Method:Stated General Appearance: WD/WN, no apparent distress Eyes: bilateral eye normal inspection, bilateral eye PERRL, bilateral eye EOMI Ears: right ear other (unable to visualize the right tympanic membrane due to overlying cerumen. The canal itself is normal.); left ear canal normal, left ear TM normal; bilateral ear auricle normal Mouth/Throat: normal mouth inspection, pharynx normal Neck: non-tender, full range of motion Respiratory: no respiratory distress, no accessory muscle use Gastrointestinal: non tender, soft Neurologic/Psychiatric: alert, normal mood/affect, oriented x 3 Skin: normal color, warm/dry Departure Impression Primary Impression: Otalgia, right ear Additional Impression: Impacted cerumen of right ear Disposition: 01 HOME, SELF-CARE Condition: Stable Departure-Patient Inst. Decision time for Depature: 17:26 Referrals: JOAO OATES MD NO,LOCAL PHYSICIAN (PCP) Primary Care Physician Patient Instructions: Ear Infections (Otitis Media), Ear Wax Impaction Add. Discharge Instructions: 1. Use 1-2 drops of mineral oil into the right ear daily for the next 5-7 days. This will help soften the ear wax and make it easier to come out on its own. Hearing should improve after that. Take the oral antibiotics as directed since I cannot exclude ear infection. Follow-up with Dr. Oates, pearl glue operator to ensure that the ear wax is coming out. Scripts Amoxicillin (Amoxicillin) 500 Mg Capsule 500 MG PO TID, #21 CAP 0 Refills Prov: MAGALIS GILBERT APRN 11/23/18 MAGALIS GILBERT APRN November 23, 2018 17:27
[2018-11-23] MEDS ORDERED: AMOX500C2 PO (17:29)
[2018-11-23 17:33] VITALS: BP 121/100
== END 2018-11-23 17:33 | disposition home or self-care (01) ==
LOC: EDUNIT# 17:11 → ER 17:12
DX: H61.21 Impacted cerumen, right ear (principal); I73.9 Peripheral vascular disease, unspecified; F12.10 Cannabis abuse, uncomplicated; Z95.820 Peripheral vascular angioplasty status with implants and grafts
CPT/HCPCS: 99282

== ENCOUNTER 2021-08-18 17:20 | Emergency (ER) | payer SELFPAY ==
[~2021-08-18] VITALS: Ht 177 cm; Wt 72.0 kg
[~2021-08-18 17:20] MED LIST changes: +AMOX500C2 PO
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
[2021-08-18] MEDS ORDERED: ONDANSETRON 4 MG (ZOFRAN) ORAL DISSOLVE TAB PO ONE (17:45)
[2021-08-18] MEDS ORDERED: ACETAMINOPHEN 500 MG TAB (TYLENOL) PO ONE (17:45)
[2021-08-18] MEDS ORDERED: IBUPROFEN 800 MG (MOTRIN) TAB PO ONE (17:45)
[2021-08-18 18:26] VITALS: BP 127/84
== END 2021-08-18 18:27 | disposition home or self-care (01) ==
LOC: EDUNIT# 17:20 → ER 17:23
DX: U07.1 COVID-19 (principal); R11.0 Nausea
CPT/HCPCS: 87636; 99283

== ENCOUNTER 2021-12-16 12:46 | Emergency (ER) | payer SELFPAY ==
[~2021-12-16] VITALS: Ht 177 cm; Wt 72.0 kg
[2021-12-16 13:34] VITALS: BP 133/98
--- NOTE | 2021-12-16 13:44 | ED General ---
General Chief Complaint: Substance Abuse Stated Complaint: DRUG USE Nursing Triage Note: PT REPORTS USE OF PERCOCET LACED W FENTANYL THIS AM APPROX 0730. STEPMOTHER REPORTS PT WAS ACTING INCOHERENT THIS MORNING. WHITISH/BLUE PILL Source of Information: Patient Exam Limitations: No Limitations History of Present Illness Date Seen by Provider: Dec 16, 2021 Time Seen by Provider: 13:41 Initial Comments Patient is a 31-year-old male who presents ED with stepmother for hallucinations after drug use. Patient states he took a blue pill this morning around 730. He states this was fentanyl. Also snorted meth this morning.. Started having visual hallucinations this morning and afternoon. Patient states people are out to get him. states he does not feel right. Contacted stepmom who brought him here in the ED. Patient reports history of drug use. Denies any alcohol use. States he does not feel right. Denies of any suicidal homicidal thoughts. Denies headache, visual changes, chest pain, cough, shortness of breath, vomiting, diarrhea. States he did feel a little nauseous right before arrival. Allergies and Home Medications Allergies Coded Allergies: No Known Drug Allergies (Unverified , 04/08/16) Patient Home Medication List Home Medication List Reviewed: Yes Amoxicillin (Amoxicillin) 500 Mg Capsule, 500 MG PO TID Prescribed by: MAGALIS GILBERT on 11/23/18 8895 Review of Systems Review of Systems Constitutional: No chills, No diaphoresis, No malaise, No weakness EENTM: No hearing loss Respiratory: No cough, No short of breath Gastrointestinal: No abdominal pain; nausea; No vomiting Genitourinary: No decreased output, No discharge Musculoskeletal: No back pain, No joint pain Skin: No change in color, No change in hair/nails Psychiatric/Neurological: Other (Hallucinations) All Other Systems Reviewed Negative Unless Noted: Yes Past Zztmeda-Hicyfv-Yhrscu Hx Patient Social History Tobacco Use?: Yes Tobacco type used: Cigarettes Smoking Status: Current Everyday Smoker Substance use?: Yes Substance type: Methamphetamine, Nicotine, Opiates/Opioids, Marijuana Substance frequency: Daily Alcohol Use?: No Immunizations Up To Date Tetanus Booster (TDap): Less than 5yrs Seasonal Allergies Seasonal Allergies: No Past Medical History Surgery/Hospitalization HX: stents in both legs, meth use yesterday Surgeries: Yes (10/20/09 hernia repair, 03/2009 iliac artery repair with stent) Vascular Surgery Respiratory: No Cardiac: Yes Peripheral Vascular Neurological: No Reproductive Disorders: No Sexually Transmitted Disease: No Gastrointestinal: No Musculoskeletal: Yes (plate right hand) Endocrine: No HEENT: No Cancer: No Psychosocial: No Integumentary: No Blood Disorders: No Adverse Reaction/Blood Tranf: No Family Medical History No Pertinent Family Hx Physical Exam Vital Signs Vital Signs - First Documented 12/16/21 12/16/21 13:34 15:39 Temp 36.3 Pulse 105 Resp 16 B/P (MAP) 133/98 (110) Pulse Ox 99 O2 Delivery Room Air Capillary Refill : Less Than 3 Seconds Height, Weight, BMI Height: 5'10.00" Weight: 160lbs. oz. [id number]; 22.00 BMI Method:Stated General Appearance: No Apparent Distress, WD/WN Eyes: Bilateral Eye Normal Inspection, Bilateral Eye PERRL, Bilateral Eye EOMI HEENT: PERRL/EOMI, TMs Normal, Normal ENT Inspection, Pharynx Normal Neck: Full Range of Motion, Normal Inspection, Non Tender, Supple Respiratory: Chest Non Tender, Lungs Clear, Normal Breath Sounds, No Accessory Muscle Use, No Respiratory Distress Cardiovascular: Regular Rate, Rhythm, No Edema, No Gallop, No JVD, No Murmur Gastrointestinal: Normal Bowel Sounds, No Organomegaly, No Pulsatile Mass, Non Tender Extremity: Normal Capillary Refill, Normal Inspection, Normal Range of Motion, Non Tender Neurologic/Psychiatric: Alert, Oriented x3, No Motor/Sensory Deficits, Other (Hallucinations visual) Progress/Results/Core Measures Suspected Sepsis SIRS Temperature: Pulse: 105 Respiratory Rate: 16 Laboratory Tests 12/16/21 13:50: White Blood Count 6.1 Blood Pressure 133 /98 Mean: 110 Laboratory Tests 12/16/21 13:50: Creatinine 1.10, Platelet Count 250, Total Bilirubin 0.3 Results/Orders Lab Results Laboratory Tests Test 12/16/21 13:50 12/16/21 15:00 Range/Units White Blood Count 6.1 4.3-11.0 10^3/uL Red Blood Count 4.97 4.30-5.52 10^6/uL Hemoglobin 14.8 13.3-17.7 g/dL Hematocrit 43 40-54 % Mean Corpuscular Volume 86 80-99 fL Mean Corpuscular Hemoglobin 30 25-34 pg Mean Corpuscular Hemoglobin Concent 35 32-36 g/dL Red Cell Distribution Width 11.7 10.0-14.5 % Platelet Count 250 130-400 10^3/uL Mean Platelet Volume 10.0 9.0-12.2 fL Immature Granulocyte % (Auto) 0 % Neutrophils (%) (Auto) 69 42-75 % Lymphocytes (%) (Auto) 19 12-44 % Monocytes (%) (Auto) 10 0-12 % Eosinophils (%) (Auto) 1 0-10 % Basophils (%) (Auto) 1 0-10 % Neutrophils # (Auto) 4.2 1.8-7.8 10^3/uL Lymphocytes # (Auto) 1.2 1.0-4.0 10^3/uL Monocytes # (Auto) 0.6 0.0-1.0 10^3/uL Eosinophils # (Auto) 0.1 0.0-0.3 10^3/uL Basophils # (Auto) 0.0 0.0-0.1 10^3/uL Immature Granulocyte # (Auto) 0.0 0.0-0.1 10^3/uL Sodium Level 137 135-145 MMOL/L Potassium Level 3.7 3.6-5.0 MMOL/L Chloride Level 104 98-107 MMOL/L Carbon Dioxide Level 22 21-32 MMOL/L Anion Gap 11 5-14 MMOL/L Blood Urea Nitrogen 12 7-18 MG/DL Creatinine 1.10 0.60-1.30 MG/DL Estimat Glomerular Filtration Rate 93 BUN/Creatinine Ratio 11 Glucose Level 103 70-105 MG/DL Calcium Level 9.4 8.5-10.1 MG/DL Corrected Calcium 9.2 8.5-10.1 MG/DL Total Bilirubin 0.3 0.1-1.0 MG/DL Aspartate Amino Transf (AST/SGOT) 18 5-34 U/L Alanine Aminotransferase (ALT/SGPT) 21 0-55 U/L Alkaline Phosphatase 70 40-136 U/L Total Protein 6.7 6.4-8.2 GM/DL Albumin 4.2 3.2-4.5 GM/DL Salicylates Level < 5.0 L 5.0-20.0 MG/DL Acetaminophen Level < 10 L 10-30 UG/ML Serum Alcohol < 10 <10 MG/DL Urine Color YELLOW Urine Clarity CLEAR Urine pH 7.0 5-9 Urine Specific Butler <=1.005 1.016-1.022 Urine Protein NEGATIVE NEGATIVE Urine Glucose (UA) NEGATIVE NEGATIVE Urine Ketones NEGATIVE NEGATIVE Urine Nitrite NEGATIVE NEGATIVE Urine Bilirubin NEGATIVE NEGATIVE Urine Urobilinogen 0.2 < = 1.0 MG/DL Urine Leukocyte Esterase NEGATIVE NEGATIVE Urine RBC (Auto) NEGATIVE NEGATIVE Urine RBC NONE /HPF Urine WBC NONE /HPF Urine Crystals NONE /LPF Urine Bacteria NEGATIVE /HPF Urine Casts NONE /LPF Urine Mucus NEGATIVE /LPF Urine Culture Indicated NO Urine Opiates Screen NEGATIVE NEGATIVE Urine Oxycodone Screen NEGATIVE NEGATIVE Urine Methadone Screen NEGATIVE NEGATIVE Urine Propoxyphene Screen NEGATIVE NEGATIVE Urine Barbiturates Screen NEGATIVE NEGATIVE Ur Tricyclic Antidepressants Screen NEGATIVE NEGATIVE Urine Phencyclidine Screen NEGATIVE NEGATIVE Urine Amphetamines Screen POSITIVE H NEGATIVE Urine Methamphetamines Screen POSITIVE H NEGATIVE Urine Benzodiazepines Screen NEGATIVE NEGATIVE Urine Cocaine Screen NEGATIVE NEGATIVE Urine Cannabinoids Screen POSITIVE H NEGATIVE My Orders Orders - DRU FAIRBANKS Ua Culture If Indicated (12/16/21 13:22) Cbc With Automated Diff (12/16/21 13:39) Comprehensive Metabolic Panel (12/16/21 13:39) Alcohol (12/16/21 13:39) Drug Screen Stat (Urine) (12/16/21 13:39) Acetaminophen (12/16/21 13:39) Salicylate (12/16/21 13:39) Ed Iv/Invasive Line Start (12/16/21 13:39) Ns Iv 1000 Ml (Sodium Chloride 0.9%) (12/16/21 13:45) Lorazepam Injection (Ativan Injection) (12/16/21 15:00) Ondansetron Injection (Zofran Injectio (12/16/21 15:30) Medications Given in ED Current Medications Medications Dose Ordered Sig/Elizabeth Route Start Time Stop Time Status Last Admin Dose Admin Lorazepam 1 mg ONCE ONCE IVP 12/16/21 15:00 12/16/21 15:01 DC 12/16/21 15:03 1 MG Ondansetron HCl 4 mg ONCE ONCE IVP 12/16/21 15:30 12/16/21 15:31 DC 12/16/21 15:37 4 MG Vital Signs/I&O 12/16/21 12/16/21 13:34 15:39 Temp 36.3 Pulse 105 77 Resp 16 13 B/P (MAP) 133/98 (110) 113/78 Pulse Ox 99 99 O2 Delivery Room Air Room Air Capillary Refill : Less Than 3 Seconds Blood Pressure Mean: 110 Departure Communication (PCP) Patient reports methamphetamine and marijuana use with concerning for not feeling right. Patient reports seeing things concerning for visual hallucinations. Denies any suicidal homicidal thoughts. Able to have a c omplete conversation with patient. Patient was given a liter of fluid and general lab work which was otherwise unremarkable. Positive for marijuana, methamphetamine, amphetamine. Patient was given Zofran for nausea and dose of Ativan for anxiety. Improvement hallucinations. Did discuss giving patient a dose of Zyprexa for concerning for mild psychosis secondary to meth. This appears to improved significantly and patient was requesting to be discharged. Provided outpatient follow-up for his drug abuse. Discussed the risk and complications of daily drug use. Patient acknowledges. Patient has a ride here and patient will be discharged home. Patient with a stable gait. Recommend rehab for drug use. Provided outpatient resources Impression Primary Impression: Methamphetamine abuse Additional Impression: Hallucination Disposition: 01 HOME, SELF-CARE Condition: Stable Departure-Patient Inst. Decision time for Depature: 15:47 Referrals: NO,LOCAL PHYSICIAN (PCP/Family) Primary Care Physician Patient Instructions: ALCOHOL AND SUBSTANCE ABUSE Add. Discharge Instructions: All discharge instructions reviewed with patient and/or family. Voiced understanding. DRU FAIRBANKS Dec 16, 2021 13:44
[2021-12-16] MEDS ORDERED: NS IV 1000 ML 1,000 ML IV SCH (13:45)
[2021-12-16 13:59] LABS: BASOPHILS % (AUTO) 1 % (0-10); EOSINOPHILS # (AUTO) 0.1 10^3/uL (0.0-0.3); EOSINOPHILS % (AUTO) 1 % (0-10); HEMATOCRIT 43 % (40-54); HEMOGLOBIN 14.8 g/dL (13.3-17.7); LYMPHOCYTES # (AUTO) 1.2 10^3/uL (1.0-4.0); LYMPHOCYTES % (AUTO) 19 % (12-44); MEAN CORPUSCULAR HEMOGLOBIN 30 pg (25-34); MEAN CORPUSCULAR HGB CONC 35 g/dL (32-36); MEAN CORPUSCULAR VOLUME 86 fL (80-99); MONOCYTES # (AUTO) 0.6 10^3/uL (0.0-1.0); MONOCYTES % (AUTO) 10 % (0-12); NEUTROPHILS # (AUTO) 4.2 10^3/uL (1.8-7.8); NEUTROPHILS % (AUTO) 69 % (42-75); PLATELET COUNT 250 10^3/uL (130-400); WHITE BLOOD COUNT 6.1 10^3/uL (4.3-11.0)
[2021-12-16 14:14] LABS: ALBUMIN 4.2 GM/DL (3.2-4.5); CHLORIDE 104 MMOL/L (98-107); POTASSIUM 3.7 MMOL/L (3.6-5.0); SODIUM 137 MMOL/L (135-145)
[2021-12-16 14:15] LABS: CALCIUM 9.4 MG/DL (8.5-10.1)
[2021-12-16 14:16] LABS: GLUCOSE 103 MG/DL (70-105)
[2021-12-16 14:17] LABS: CARBON DIOXIDE 22 MMOL/L (21-32); TOTAL PROTEIN 6.7 GM/DL (6.4-8.2)
[2021-12-16 14:18] LABS: BILIRUBIN,TOTAL 0.3 MG/DL (0.1-1.0)
[2021-12-16 14:20] LABS: ALKALINE PHOSPHATASE 70 U/L (40-136); GFR ESTIMATED 93
[2021-12-16 14:22] LABS: BUN/CREATININE RATIO 11
[2021-12-16 14:23] LABS: ALANINE AMINOTRANSFERASE 21 U/L (0-55); SALICYLATE < 5.0 MG/DL (5.0-20.0)
[2021-12-16 14:34] LABS: ACETAMINOPHEN < 10 UG/ML (10-30)
[2021-12-16] MEDS ORDERED: LORazepam INJ 2 MG/ML (ATIVAN) VIAL IVP ONE (15:00)
[2021-12-16 15:10] LABS: BILIRUBIN,URINE NEGATIVE (NEGATIVE); CLARITY,URINE CLEAR; COLOR,URINE YELLOW; GLUCOSE, URINE (UA) NEGATIVE (NEGATIVE); KETONES,URINE NEGATIVE (NEGATIVE); LEUKOCYTE ESTERASE ,URINE NEGATIVE (NEGATIVE); NITRITE,URINE NEGATIVE (NEGATIVE); PROTEIN,URINE NEGATIVE (NEGATIVE)
[2021-12-16 15:16] LABS: BACTERIA,URINE NEGATIVE /HPF
[2021-12-16] MEDS ORDERED: ONDANSETRON 4 MG/2 ML (SDV) Z0FRAN IVP ONE (15:30)
[2021-12-16 15:36] LABS: AMPHETAMINE SCREEN, URINE POSITIVE (NEGATIVE); BARBITURATE SCREEN URINE NEGATIVE (NEGATIVE); BENZODIAZEPINES SCREEN URINE NEGATIVE (NEGATIVE); CANNABINOID SCREEN, URINE POSITIVE (NEGATIVE); COCAINE SCREEN URINE NEGATIVE (NEGATIVE); METHADONE STAT NEGATIVE (NEGATIVE); OPIATE SCREEN URINE NEGATIVE (NEGATIVE); OXYCODONE STAT NEGATIVE (NEGATIVE); PROPOXYPHENE STAT NEGATIVE (NEGATIVE); TRICYCLIC ANTIDEPRESSANTS SCRE NEGATIVE (NEGATIVE)
== END 2021-12-16 16:04 | disposition home or self-care (01) ==
LOC: EDUNIT# 12:46 → ER 12:47
DX: F15.10 Other stimulant abuse, uncomplicated (principal); R44.1 Visual hallucinations; F12.10 Cannabis abuse, uncomplicated; F41.9 Anxiety disorder, unspecified; F17.210 Nicotine dependence, cigarettes, uncomplicated; Z79.899 Other long term (current) drug therapy
CPT/HCPCS: 80053; 80306; 81000; 85025; 99284; G0480 ×3; 36415; 80320; 80329

== ENCOUNTER 2023-05-18 21:16 | Emergency (ER) | payer SELFPAY ==
[~2023-05-18] VITALS: Ht 177.8 cm; Wt 72.5 kg
--- NOTE | 2023-05-18 21:33 | ED Upper Extremity ---
General Stated Complaint: RIGHT HAND INJ Source: patient Exam Limitations: no limitations (DRU FAIRBANKS) History of Present Illness Date Seen by Provider: May 18, 2023 Time Seen by Provider: 21:32 Initial Comments Patient is a 32-year-old male who presents to the ED with right ring finger injury. This occurred 2 days ago. Patient states he punched the window glass of a vehicle. Patient states the glass did break. This resulted in a superficial laceration overlying the PIP joint of the right ring finger. Noted some swelling and redness and drainage from the wound. He is able to flex and extend the right ring finger. He did not pull any glass. He is up-to-date on his tetanus within the past 5 years. He does have pain across this area concern for infection versus fracture. Patient states pain radiates up the right arm. Denies of any numbness and tingling, chest pain, shortness of breath, fever, chills, bodyaches. (DRU FAIRBANKS) Allergies and Home Medications Allergies Coded Allergies: No Known Drug Allergies (Unverified , 04/08/16) Patient Home Medication List Home Medication List Reviewed: Yes (DRU FAIRBANKS) Amoxicillin (Amoxicillin) 500 Mg Capsule, 500 MG PO TID Prescribed by: MAGALIS GILBERT on 11/23/181728 Cephalexin (Cephalexin) 500 Mg Tablet, 500 MG PO QID Prescribed by: ORAL MELARA on 05/18/23 2204 Review of Systems Constitutional: No chills, No diaphoresis, No fever, No malaise, No weakness EENTM: No hearing loss, No ear pain, No blurred vision Respiratory: No cough, No dyspnea on exertion Cardiovascular: No chest pain Gastrointestinal: No abdominal pain, No diarrhea, No nausea, No vomiting Genitourinary: No decreased output, No discharge Musculoskeletal: No back pain; joint pain, joint swelling Skin: change in color (DRU FAIRBANKS) All Other Systems Reviewed Negative Unless Noted: Yes (DRU FAIRBANKS) Past Qqsmuvp-Rhdflv-Ikzjug Hx Immunizations Up To Date Tetanus Booster (TDap): Less than 5yrs (DRU FAIRBANKS) Seasonal Allergies Seasonal Allergies: No (DRU FAIRBANKS) Past Medical History Surgery/Hospitalization HX: stents in both legs, meth use yesterday Surgeries: Yes (10/20/09 hernia repair, 03/2009 iliac artery repair with stent) Vascular Surgery Respiratory: No Cardiac: Yes Peripheral Vascular Neurological: No Reproductive Disorders: No Sexually Transmitted Disease: No Gastrointestinal: No Musculoskeletal: Yes (plate right hand) Endocrine: No HEENT: No Cancer: No Psychosocial: No Integumentary: No Blood Disorders: No Adverse Reaction/Blood Tranf: No (DRU FAIRBANKS) Family Medical History No Pertinent Family Hx (DRU FAIRBANKS) Physical Exam Vital Signs Vital Signs - First Documented 05/18/23 21:27 Temp 36.4 Pulse 89 Resp 14 B/P (MAP) 125/81 (96) Pulse Ox 100 O2 Delivery Room Air (NICOLE HARRIS MD) Vital Signs Capillary Refill : (DRU FAIRBANKS) Height, Weight, BMI Height: 5'10.00" Weight: 160lbs. oz. 72.646768cu; 22.00 BMI Method:Stated General Appearance: WD/WN, no apparent distress HEENT: PERRL/EOMI, normal ENT inspection, TMs normal, pharynx normal Neck: non-tender, full range of motion, supple Cardiovascular: regular rate, rhythm, no edema, no gallop, no JVD Respiratory: chest non-tender, lungs clear, normal breath sounds, no respiratory distress, no accessory muscle use Gastrointestinal: normal bowel sounds, non tender, no organomegaly Back: normal inspection, no CVA tenderness Shoulder: normal inspection, non-tender Elbow/Forearm: normal inspection, non-tender, Right Wrist: Yes normal inspection, Yes non-tender, Yes no evidence of injury, Yes no rmal ROM Hand: Right, soft tissue tenderness (Tenderness to the right ring finger PIP joint with swelling redness. Clear drainage. No obvious foreign body.), stiffness, swelling Neurologic/Psychiatric: rn psychiatric II-XII nml as tested, no motor/sensory deficits, alert, normal mood/affect, oriented x 3 Skin: other (Localized swelling redness dorsum side of the right ring finger PIP joint. Superficial laceration less than 1 cm with clear drainage.) (DRU FAIRBANKS) Progress/Results/Core Measures Results/Orders Lab Results Laboratory Tests Test 05/18/23 21:47 Range/Units Glucometer 94 70-110 MG/DL (NICOLE HARRIS MD) Vital Signs/I&O 05/18/23 05/18/23 05/18/23 05/18/23 21:27 21:40 21:57 22:12 Temp 36.4 Pulse 89 48 53 56 Resp 14 18 16 16 B/P (MAP) 125/81 (96) 85/52 (63) 95/65 (75) 97/67 (77) Pulse Ox 100 99 100 100 O2 Delivery Room Air Room Air Room Air Room Air 05/18/23 05/18/23 22:23 22:33 Pulse 61 63 Resp 14 14 B/P (MAP) 103/68 (80) 111/71 Pulse Ox 98 100 O2 Delivery Room Air Room Air (NICOLE HARRIS MD) Departure Communication (PCP) Patient has a wound to his right ring finger overlying the PCP joint. Localized swelling redness superficial laceration. This occurred 2 days ago after hitting a window. Palpated the area no obvious foreign body. Did have some fluid draining from the area. Concern for secondary infection. No history of MRSA. Does have adequate range of motion but tender to palpate. X-ray was ordered to rule out open fracture which was negative for acute fracture. Soft tissue swelling. Irrigated with normal saline and Shur cleans. Applied topical Neosporin. There was no obvious radiopaque foreign body. At this time recommend keeping area clean. Topical Neosporin twice a day. he did receive Keflex and will discharge with oral Keflex. If increased redness or swelling to return back to ED. No evidence of fluctuant mass at this time needing incision and drainage. Follow-up your PCP in 2 days for reevaluation. If there is a foreign body this will likely work its way out such as a small piece of glass. Patient acknowledges. (DRU FAIRBANKS) Impression Primary Impression: Wound cellulitis Disposition: 01 HOME, SELF-CARE Condition: Stable Departure-Patient Inst. Decision time for Depature: 22:04 (DRU FAIRBANKS) Referrals: [facility] [place] NO,LOCAL PHYSICIAN (PCP) Primary Care Physician Patient Instructions: Cellulitis (Skin Infection), Adult (DC) Add. Discharge Instructions: Apply topical Neosporin twice a day. Keflex for the infection. If increased redness or swelling to return back to ED. Scripts Cephalexin (Cephalexin) 500 Mg Tablet 500 MG PO QID for 7 Days, #28 TAB Prov: DRU FAIRBANKS 05/18/23 ATTENDING PHYSICIAN NOTE: I was physically present as attending physician in the emergency department during the care of this patient, but I was not directly involved in the decision making or delivery of care for this patient. (NICOLE HARRIS MD) DRU FAIRBANKS May 18, 2023 21:33 NICOLE HARRIS MD May 19, 2023 06:36
--- NOTE | 2023-05-18 21:55 | Diagnostic Imaging Report ---
HISTORY: Right ring finger pain after injury. TECHNIQUE: 3 views of the right hand. COMPARISON: None. FINDINGS: No acute fracture is seen in the right hand. Alignment appears normal. Joint spaces are preserved. There is soft tissue swelling of the 4th finger. No unexpected radiopaque foreign body is seen. There is internal fixation of the 5th metacarpal with a dorsal plate and multiple screws. No hardware complication is seen. IMPRESSION: Soft tissue swelling of the right 4th finger with no acute osseous abnormality seen in the right hand. Dictated by: Dictated on workstation # [id number]
[2023-05-18] MEDS ORDERED: CEPHALEXIN 250 MG CAPSULE PO STA (22:02)
[2023-05-18] MEDS ORDERED: CEPH500T PO (22:04)
[2023-05-18 22:33] VITALS: BP 111/71
== END 2023-05-18 22:33 | disposition home or self-care (01) ==
LOC: EDUNIT# 21:16 → ER 21:20
DX: S61.214A Laceration without foreign body of right ring finger without damage to nail, initial encounter (principal); L03.011 Cellulitis of right finger; Y04.8XXA Assault by other bodily force, initial encounter
CPT/HCPCS: 73130; 82947